=== PATIENT | female | born 1945 | race Two or more races ===

== ENCOUNTER → 2019-02-15 | Outpatient (CLI) | payer OTHER | END | disposition home or self-care (01) | LOC: RAD 13:41 | DX: R07.89 Other chest pain (principal) ==

== ENCOUNTER 2020-07-26 12:38 | Outpatient (CLI) | payer OTHER | END 2020-07-26 12:50 | disposition home or self-care (01) | LOC: MAMO-SONO 12:38 | PROVIDERS: ATTEND Obstetrics & Gynecology | DX: N60.11 Diffuse cystic mastopathy of right breast (principal); N60.12 Diffuse cystic mastopathy of left breast; Z12.31 Encounter for screening mammogram for malignant neoplasm of breast ==

== ENCOUNTER 2021-11-28 08:45 | Outpatient (CLI) | payer OTHER | END 2021-11-28 08:55 | disposition home or self-care (01) | LOC: RAD 08:45 | DX: J98.09 Other diseases of bronchus, not elsewhere classified (principal) ==

== ENCOUNTER 2023-06-03 07:25 | Outpatient (CLI) | payer OTHER | END 2023-06-03 07:35 | disposition home or self-care (01) | LOC: SONOGRAMA 07:25 | PROVIDERS: ATTEND Surgery | DX: N28.1 Cyst of kidney, acquired (principal) ==

== ENCOUNTER 2023-10-18 08:48 | Outpatient (CLI) | payer OTHER | END 2023-10-18 08:55 | disposition home or self-care (01) | LOC: RAD 08:48 | PROVIDERS: ATTEND General Practice | DX: R22.32 Localized swelling, mass and lump, left upper limb (principal); M25.572 Pain in left ankle and joints of left foot; M79.672 Pain in left foot ==

== ENCOUNTER 2023-10-21 07:32 | Outpatient (CLI) | payer OTHER | END 2023-10-21 07:46 | disposition home or self-care (01) | LOC: TOM 07:32 | PROVIDERS: ATTEND General Practice | DX: M54.50 Low back pain, unspecified (principal); G57.90 Unspecified mononeuropathy of unspecified lower limb; R22.32 Localized swelling, mass and lump, left upper limb ==